=== PATIENT | male | born 1965 | race Caucasian/White ===

== ENCOUNTER 2021-05-05 23:25 | Emergency (ER) | payer SELFPAY ==
[~2021-05-05] VITALS: Ht 172.7 cm; Wt 63.5 kg
[2021-05-05 23:50] LABS: BASOPHILS ABSOLUTE AUTO 0.09 K/mm3 (0.00-0.23); BASOPHILS PERCENT AUTO 1 % (0-2); EOSINOPHILS ABSOLUTE AUTO 0.04 K/mm3 (0.00-0.68); EOSINOPHILS PERCENT AUTO 0 % (0-6); Hematocrit 43.8 % (37.0-53.0); Hemoglobin 15.2 g/dL (13.5-17.5); IMMATURE GRAN ABSOLUTE AUTO 0.04 K/mm3 (0.00-0.10); IMMATURE GRAN PERCENT AUTO 0 % (0-1); LYMPHOCYTES ABSOLUTE AUTO 2.32 K/mm3 (0.84-5.20); LYMPHOCYTES PERCENT AUTO 17 % (21-46); MONOCYTES ABSOLUTE AUTO 0.61 K/mm3 (0.16-1.47); MONOCYTES PERCENT AUTO 5 % (4-13); Mean Corpuscular HGB 31.3 pg (26.0-34.0); Mean Corpuscular HGB Conc 34.7 g/dL (31.5-36.5); Mean Corpuscular Volume 90 fL (80-100); Mean Platelet Volume 9.3 fL (9.1-12.4); NEUTROPHILS ABSOLUTE AUTO 10.26 K/mm3 (1.96-9.15); NEUTROPHILS PERCENT AUTO 77 % (41-73); Platelet Count 262 K/mm3 (150-400); RDW Coefficient Variation 13.4 % (11.7-14.2); RDW Standard Deviation 44.8 fL (35.1-46.3); Red Blood Cell Count 4.85 M/mm3 (4.30-5.90); White Blood Cell Count 13.36 K/mm3 (4.00-11.30)
[2021-05-06 00:08] LABS: Alanine Aminotransfer (ALT/SGP 45 U/L (12-78); Albumin, Blood 4.1 g/dL (3.4-5.0); Alk Phos 117 U/L (50-136); Anion Gap 9 mmol/L (6-16); Aspartate Aminotrans (AST/SGOT 30 U/L (12-37); Bilirubin, Total 0.3 mg/dL (0.1-1.0); Blood Urea Nitrogen 18 mg/dL (8-24); Bun/Creatinine Ratio 21.3 (12.0-20.0); CO2, Blood 22 mmol/L (21-32); Calcium, Blood 9.6 mg/dL (8.5-10.1); Chloride, Blood 108 mmol/L (98-108); Creatinine, Blood 0.85 mg/dL (0.60-1.20); Globulin, Blood 4.3 g/dL (2.2-4.0); Glomerular Filtration Rate >60 (60-); Glucose, Blood 122 mg/dL (70-99); Potassium, Blood 3.5 mmol/L (3.5-5.5); Sodium, Blood 139 mmol/L (136-145); Total Protein, Blood 8.4 g/dL (6.4-8.2)
[2021-05-06] MEDS ORDERED: LEVO750 PO (00:34)
[2021-05-06] MEDS ORDERED: PRED20 PO (00:34)
[2021-05-06 01:09] LABS: Influenza A, PCR NEGATIVE (NEGATIVE); Influenza B, PCR NEGATIVE (NEGATIVE); Resp Syncytial Virus, PCR NEGATIVE (NEGATIVE); SARS-Cov-2 (COVID-19) PCR, MMC NEGATIVE (NEGATIVE)
[2021-05-06 01:20] LABS: Prothrombin Time Results 10.5 Sec (9.7-11.5)
== END 2021-05-06 02:20 | disposition short-term general hospital (02) ==
LOC: ER 23:25
PROVIDERS: Physician Assistant; Student in an Organized Health Care Education/Training Program
DX: I60.9 Nontraumatic subarachnoid hemorrhage, unspecified (principal); J44.1 Chronic obstructive pulmonary disease with (acute) exacerbation; Z20.822 Contact with and (suspected) exposure to COVID-19; F17.200 Nicotine dependence, unspecified, uncomplicated; Z88.5 Allergy status to narcotic agent
CPT/HCPCS: 0241U; 70450; 80053; 85025; 85610; 85730; 96365; 96366; 96368; 96375; 99285-25; J1953; J2405; J7050

== ENCOUNTER 2025-02-22 14:26 | Inpatient (IN) | payer OTHER ==
[~2025-02-22] VITALS: Ht 172.7 cm; Wt 64.9 kg
[~2025-02-22 14:26] MED LIST: LEVO750 PO; LOSA50 PO; PRED20 PO
[2025-02-22 15:19] LABS: BASOPHILS ABSOLUTE AUTO 0.02 K/mm3 (0.00-0.23); BASOPHILS PERCENT AUTO 0 % (0-2); EOSINOPHILS ABSOLUTE AUTO 0.01 K/mm3 (0.00-0.68); EOSINOPHILS PERCENT AUTO 0 % (0-6); Hematocrit 39.9 % (37.0-53.0); Hemoglobin 14.0 g/dL (13.5-17.5); IMMATURE GRAN ABSOLUTE AUTO 0.02 K/mm3 (0.00-0.10); IMMATURE GRAN PERCENT AUTO 0 % (0-1); LYMPHOCYTES ABSOLUTE AUTO 1.15 K/mm3 (0.84-5.20); LYMPHOCYTES PERCENT AUTO 20 % (21-46); MONOCYTES ABSOLUTE AUTO 0.25 K/mm3 (0.16-1.47); MONOCYTES PERCENT AUTO 4 % (4-13); Mean Corpuscular HGB Conc 35.1 g/dL (31.5-36.5); Mean Corpuscular Volume 80 fL (80-100); NEUTROPHILS ABSOLUTE AUTO 4.45 K/mm3 (1.96-9.15); NEUTROPHILS PERCENT AUTO 76 % (41-73); NRBC ABSOLUTE 0.00 K/mm3 (0.00-0.02); NRBC Auto 0.0 /100 WBC (0.0-0.2); Platelet Count 250 K/mm3 (150-400); RDW Coefficient Variation 13.2 % (11.7-14.2); RDW Standard Deviation 37.7 fL (35.1-46.3)
[2025-02-22 15:38] LABS: Alanine Aminotransfer (ALT/SGP 19.0 U/L (12-78); Albumin, Blood 3.2 g/dL (3.4-5.0); Albumin/Globulin Ratio 0.7 (0.8-1.8); Anion Gap 16.0 mmol/L (3-11); Aspartate Aminotrans (AST/SGOT 22.0 U/L (12-37); Bilirubin, Total 0.6 mg/dL (0.1-1.0); Blood Urea Nitrogen 30.0 mg/dL (8-24); CO2, Blood 25.0 mmol/L (21-32); Calcium, Blood 9.4 mg/dL (8.5-10.1); Chloride, Blood 86.0 mmol/L (98-108); Creatinine, Blood 0.9 mg/dL (0.60-1.20); Globulin, Blood 4.9 g/dL (2.2-4.0); Glucose, Blood 115.0 mg/dL (70-99); Potassium, Blood 3.0 mmol/L (3.5-5.5); Sodium, Blood 124.0 mmol/L (136-145); Total Protein, Blood 8.1 g/dL (6.4-8.2)
[2025-02-22] MEDS ORDERED: NS 1,000 ML IV SCH ×2 (16:15→19:00)
[2025-02-22 17:00] LABS: pH Blood Venous 7.44 (7.34-7.37)
[2025-02-22 17:22] LABS: CORONAVIRUS COVID-19 AG Negative (NEGATIVE)
[2025-02-22] MEDS ORDERED: CefTRIAXone Sodium 1,000 MG in NS 100 ML IV ONE (17:45)
[2025-02-22] MEDS ORDERED: Albuterol 2.5 MG/3 ML VIAL INH PRN (18:15)
[2025-02-22] MEDS ORDERED: FLU VACC TS2025-26(6MOS UP)/PF 45 MCG/0.5 ML SYRINGE IM SCH (18:15)
[2025-02-22] MEDS ORDERED: Magnesium Sulf 2 GM/Water 50ML 50 ML IV STA (18:35)
[2025-02-22] MEDS ORDERED: Potassium Chl 20MEQ/Water100ML 100 ML IV STA (18:35)
[2025-02-22 18:40] LABS: Source, Urine Clean Catch
[2025-02-22 19:14] LABS: Bilirubin, Urine Neg (Neg); Color, Urine Yellow (P-Yellow); Glucose Qualitative, Urine Neg (Neg); Ketones, Urine Neg (Neg); Leukocyte Esterase, Urine Neg (Neg); Protein, Urine 1+ (Neg); Specific Gravity, Urine 1.015 (1.003-1.022); Urobilinogen, Urine 1+ (Normal)
[2025-02-22] MEDS ORDERED: NS 1,000 ML IV ONE (19:47)
[2025-02-22 19:49] LABS: Red Blood Cells, Urine 0-2 /hpf (0-2)
[2025-02-22] MEDS ORDERED: Lactobacil 2-S.Thermo-Bifido 1 1 Cap PO SCH (21:00)
[2025-02-22 21:17] VITALS: BP 141/99
[2025-02-22 21:24] LABS: U Amphetamine Screen Not Detected; U Barbiturate Screen Not Detected; U Benzodiazapine Screen Not Detected; U Buprenorphine Screen Not Detected; U Cannabinoids Screen DETECTED; U Cocaine Screen Not Detected; U Methadone Screen Not Detected; U Methamphetamine Screen Not Detected; U Opiates Screen Not Detected; U Oxycodone Screen Not Detected; U Phencyclidine Screen Not Detected
[2025-02-22 22:29] LABS: Anion Gap 13.0 mmol/L (3-11); Blood Urea Nitrogen 25.0 mg/dL (8-24); CO2, Blood 23.0 mmol/L (21-32); Calcium, Blood 8.7 mg/dL (8.5-10.1); Chloride, Blood 93.0 mmol/L (98-108); Creatinine, Blood 0.72 mg/dL (0.60-1.20); Glucose, Blood 100.0 mg/dL (70-99); Potassium, Blood 3.2 mmol/L (3.5-5.5); Sodium, Blood 126.0 mmol/L (136-145)
[2025-02-22] MEDS ORDERED: Ondansetron HCl 2 MG / ML 2ML Vial IV PRN (22:30)
--- NOTE | 2025-02-22 23:05 | NUR ---
ADMIT NOTE FOR 02/22/25 2100 REPORT WAS RECEIVED FROM THE ER. PT WAS BROUGHT DOWN ON THE GURNEY AND TRANSFERRED OVER TO PCU RM 10 BED. PT WAS ORIENTED TO THE ROOM AND STAFF. PT ALERT ORIENTED X 3 UNSURE OF THE MONTH HE STATED THAT ITS MAY. HES ABLE TO VERBALIZE NEEDS. HE WAS PUT ON 4 L OF NC SATTING AT 94%. CALLED MD TO GET ORDERS FOR ZOFRAN, TYLENOL AND NOCOTINE PATCH. FULL BODY ASSESSMENT WAS DONE. HES RESTING IN BED AT THIS TIME
[2025-02-22 23:43] VITALS: BP 131/90
[2025-02-23 03:48] VITALS: BP 125/87
--- NOTE | 2025-02-23 06:01 | NUR ---
SHIFT SUMMARY PT ALERT ORIENTED X 2-3 SAID THAT ITS MAY WHEN ASKED THE MONTH. HE STATED THAT HES HOMELESS AT THIS TIME AND HAS A HX OF SCHIZOPHRENIA AND ANXIETY BUT HASNT TAKEN ANY MEDS IN A YEAR. HE IS ANXIOUS AT THIS TIME PULLED OUT HIS IV, TOOK OFF HIS O2, TOOK OFF HIS PULSE OX AND IS REALLY RESTLESS. I WENT AND EXPLAINED TO HIM THAT HE NEEDS ALL OF THOSE THINGS TO HELP HIM GET BETTER. HE STATED THAT HE WASNT SURE WHAT HE WAS DOING WHEN HE REMOVED EVERYTHING. HE ALSO ASKED ME IF THERE WAS A DOG ON THE CEILING. IT APPEARS HES HAVING SOME HALLUCINATIONS. HE REMAINS ON 4L OF O2 AND HE DESATS TO THE LOW 80S WHEN HE REMOVED HIS O2. WE ALSO PUT A MALE PUREWICK ON HIM AND HE REMOVED IT TOO. HE DID GET UP TO THE BEDSIDE COMMODE AND HAS A XLG LIQUID STOOL. WE SENT IT TO LAB FOR TESTING. WE SET HIM UP WITH A VIRTUAL SITTER TO HELP TO MONITOR HIM. HIS POTASSIUM WAS AT 3.2 AND MD ORDERED 40 IV POTASSIUM WHICH HE GOT MOST OF. HIS TOXIC SCREEN SHOWED POSITIVE FOR MARIJUANA. REMAINS ON NS AT 125. HES RESTING IN BED AT THIS TIME WITH CALL LIGHT IN REACH
[2025-02-23 06:52] LABS: BASOPHILS ABSOLUTE AUTO 0.02 K/mm3 (0.00-0.23); BASOPHILS PERCENT AUTO 1 % (0-2); EOSINOPHILS ABSOLUTE AUTO 0.02 K/mm3 (0.00-0.68); EOSINOPHILS PERCENT AUTO 1 % (0-6); Hematocrit 32.8 % (37.0-53.0); Hemoglobin 11.1 g/dL (13.5-17.5); IMMATURE GRAN ABSOLUTE AUTO 0.02 K/mm3 (0.00-0.10); IMMATURE GRAN PERCENT AUTO 1 % (0-1); LYMPHOCYTES ABSOLUTE AUTO 0.79 K/mm3 (0.84-5.20); LYMPHOCYTES PERCENT AUTO 24 % (21-46); MONOCYTES ABSOLUTE AUTO 0.09 K/mm3 (0.16-1.47); MONOCYTES PERCENT AUTO 3 % (4-13); Mean Corpuscular HGB Conc 33.8 g/dL (31.5-36.5); Mean Corpuscular Volume 82 fL (80-100); NEUTROPHILS ABSOLUTE AUTO 2.33 K/mm3 (1.96-9.15); NEUTROPHILS PERCENT AUTO 71 % (41-73); NRBC ABSOLUTE 0.00 K/mm3 (0.00-0.02); NRBC Auto 0.0 /100 WBC (0.0-0.2); Platelet Count 177 K/mm3 (150-400); RDW Coefficient Variation 13.4 % (11.7-14.2); RDW Standard Deviation 40.4 fL (35.1-46.3)
[2025-02-23 07:21] LABS: Campylobacter Sp Not Detected (NOT DETECT)
[2025-02-23 07:22] LABS: E. Coli O157 Not Detected (NOT DETECT); Enteroaggregative E. coli-EAEC Not Detected (NOT DETECT); Enteropathogenic E. coli-EPEC Not Detected (NOT DETECT); Enterotoxigenic E. coli-ETEC Not Detected (NOT DETECT); Salmonella Sp Not Detected (NOT DETECT); Shiga Toxin-prod E. coli-STEC Not Detected (NOT DETECT); Shigella/Enteroin E. coli-EIEC Not Detected (NOT DETECT); Vibrio Sp Not Detected (NOT DETECT)
[2025-02-23 07:49] VITALS: BP 127/94
[2025-02-23 07:50] LABS: Anion Gap 10.0 mmol/L (3-11); Blood Urea Nitrogen 18.0 mg/dL (8-24); CO2, Blood 24.0 mmol/L (21-32); Calcium, Blood 7.7 mg/dL (8.5-10.1); Chloride, Blood 100.0 mmol/L (98-108); Creatinine, Blood 0.7 mg/dL (0.60-1.20); Glucose, Blood 107.0 mg/dL (70-99); Magnesium, Blood 2.6 mg/dL (1.6-2.4); Potassium, Blood 3.4 mmol/L (3.5-5.5); Sodium, Blood 131.0 mmol/L (136-145)
[2025-02-23] MEDS ORDERED: Enoxaparin 40 MG/0.4 ML SYR SC SCH (09:00)
[2025-02-23 11:53] VITALS: BP 112/92
[2025-02-23 15:28] VITALS: BP 118/93
--- NOTE | 2025-02-23 17:43 | NUR ---
SHIFT SUMMARY; ASSUMED CARE AT 0700, A/A/OX2-3. CONFUSED AT TIMES AND TALKS TO SELF, HX OF SCHIZOPHRENIA. FOLLOWS INSTRUCTIONS BUT FORGETFUL AT TIMES. BED AND CHAIR ALARM USED. AMBULATES TO BSC WITH 1 PERSON ASSIST. LOOSE STOOL X1 DURING SHIFT. 02 4-7L. DESATS QUICKLY WITH EXERTION TO 82% AT TIMES. RECOVERS WITH 7L TO MID 90'S. BP STABLE. NS INFUSING AT 125ML/HR. WILL CONTINUE TO MONITOR AND TREAT UNTIL REPORT GIVEN TO NOC SHIFT RN.
[2025-02-23] MEDS ORDERED: CefTRIAXone Sodium 1,000 MG in NS 100 ML IV SCH (18:00)
[2025-02-23 19:52] VITALS: BP 126/102
[2025-02-23] MEDS ORDERED: DiphenhydrAMINE HCl 50 MG/ML 1ML Vial IV PRN (21:00)
[2025-02-23 23:39] VITALS: BP 127/99
[2025-02-24] VITALS (24 sets, daily range): BP systolic 80–118; BP diastolic 62–96
[2025-02-24 05:10] LABS: BASOPHILS ABSOLUTE AUTO 0.01 K/mm3 (0.00-0.23); BASOPHILS PERCENT AUTO 0 % (0-2); EOSINOPHILS ABSOLUTE AUTO 0.00 K/mm3 (0.00-0.68); EOSINOPHILS PERCENT AUTO 0 % (0-6); Hematocrit 32.5 % (37.0-53.0); Hemoglobin 11.1 g/dL (13.5-17.5); IMMATURE GRAN ABSOLUTE AUTO 0.03 K/mm3 (0.00-0.10); IMMATURE GRAN PERCENT AUTO 0 % (0-1); LYMPHOCYTES ABSOLUTE AUTO 0.45 K/mm3 (0.84-5.20); LYMPHOCYTES PERCENT AUTO 7 % (21-46); MONOCYTES ABSOLUTE AUTO 0.11 K/mm3 (0.16-1.47); MONOCYTES PERCENT AUTO 2 % (4-13); Mean Corpuscular HGB Conc 34.2 g/dL (31.5-36.5); Mean Corpuscular Volume 84 fL (80-100); NEUTROPHILS ABSOLUTE AUTO 6.21 K/mm3 (1.96-9.15); NEUTROPHILS PERCENT AUTO 91 % (41-73); NRBC ABSOLUTE 0.00 K/mm3 (0.00-0.02); NRBC Auto 0.0 /100 WBC (0.0-0.2); Platelet Count 196 K/mm3 (150-400); RDW Coefficient Variation 13.9 % (11.7-14.2); RDW Standard Deviation 42.3 fL (35.1-46.3)
[2025-02-24 05:24] LABS: Anion Gap 14.0 mmol/L (3-11); Blood Urea Nitrogen 9.0 mg/dL (8-24); CO2, Blood 19.0 mmol/L (21-32); Calcium, Blood 8.1 mg/dL (8.5-10.1); Chloride, Blood 103.0 mmol/L (98-108); Creatinine, Blood 0.58 mg/dL (0.60-1.20); Glucose, Blood 127.0 mg/dL (70-99); Potassium, Blood 4.0 mmol/L (3.5-5.5); Sodium, Blood 132.0 mmol/L (136-145)
--- NOTE | 2025-02-24 06:19 | NUR ---
SHIFT SUMMARY PT ALERT ORIENTED TO SELF ONLY AND VERY PARANOID. HE HAS A HX OF PARANOID SCHIZOPHRENIA AND HAS BEEN HAVING VISUAL AND AUDITORY HALLUCINATIONS. HES BEEN VERY RESTLESS ALL SHIFT TRYING TO TAKE OUT HIS POWERGLIDE AND CONTINUING TO REMOVE HIS OXYGEN SEVERAL TIMES. HE GETS VERY SOB WITH ANY TYPE OF EXERTION AND DESATS TO THE LOW 80S. HES BEEN REQUIRING 5-8L OF OXYGEN VIA MASK. HE C/O NAUSEA MEDICATED WITH ZOFRAN WITH GOOD RELIEF. ALSO C/O GENERAL PAIN MEDICATED WITHTYLENOL WITH GOOD RELIEF. REMAINS ON ROCEPHIN ORDERED FOR PNEUMONIA. POWERGLIDE INTACT TO LT UPPER ARM WITH NS AT 125. DRESSING INTACT TO HIS OPEN AREA ON COCCYX. HE HAS A SITTER AT BEDSIDE. HE WAS GIVEN BENEDRYL FOR ITCHING WITH NO HELP. HE REMAINED AWAKE MOST OF THE SHIFT. HE NEEDS TO GET HIS PSYCH MEDS RESTARTED.
[2025-02-24] MEDS ORDERED: LORazepam 2 MG/ML 1ML Injection IV PRN (10:15)
[2025-02-24 10:45] LABS: pH Blood Venous 7.49 (7.34-7.37)
[2025-02-24 10:47] LABS: Acinetobacter baumannii DNA Not Detected copy/mL (NOT DETECT); Chlamydia pneumonia Not Detected (NOT DETECT); Enterobacter cloacae DNA Not Detected copy/mL (NOT DETECT); Escherichia coli DNA Not Detected copy/mL (NOT DETECT); Haemophilus influenzae DNA Detected Bin 10^6 copy/mL (NOT DETECT); Human Coronavirus RNA Not Detected (NOT DETECT); Klebsiella aerogenes DNA Not Detected copy/mL (NOT DETECT); Klebsiella oxytoca DNA Not Detected copy/mL (NOT DETECT); Klebsiella pneumoniae DNA Not Detected copy/mL (NOT DETECT); Moraxella catarrhalis DNA Not Detected copy/mL (NOT DETECT); Proteus sp DNA Not Detected copy/mL (NOT DETECT); Pseudomonas aeruginosa DNA Not Detected copy/mL (NOT DETECT); Serratia marcescens DNA Not Detected copy/mL (NOT DETECT); Staphylococcus aureus DNA Not Detected copy/mL (NOT DETECT); Streptococcus agalactiae DNA Not Detected copy/mL (NOT DETECT); Streptococcus pneumoniae DNA Not Detected copy/mL (NOT DETECT); Streptococcus pyogenes DNA Not Detected copy/mL (NOT DETECT)
[2025-02-24 10:48] LABS: Human Metapneumovirus RNA Not Detected (NOT DETECT); Influenza virus A RNA Not Detected (NOT DETECT); Influenza virus B RNA Not Detected (NOT DETECT); Respiratory syncytial Vir RNA Not Detected (NOT DETECT); Rhinovirus+Enterovirus RNA Not Detected (NOT DETECT)
--- NOTE | 2025-02-24 10:50 | NUR ---
given 0.5 mg Ativan IV to help tolerance of bipap mask.
--- NOTE | 2025-02-24 11:40 | NUR ---
TRANSFER TO ICU PT ARRIVED TO ICU 10 VIA BED AT 1125. PT TRANSFERED TO ICU BED. PT IS AWAKE AND ALERT. PT ARRIVED WITH 15L O2 VIA NC, AND 15L O2 VIA NONREBREATHER. VITAL SIGNS STABLE AT THIS TIME. RT SETTING UP AIRVO AT THIS TIME. PT RESTLESS AND PULLING AT LINES/TUBES. PRECEDEX STARTED AT 0.2 MCG/KG/HR. WILL CONTINUE TO MONITOR.
--- NOTE | 2025-02-24 11:46 | NUR ---
TRANSFER TO ICU NOTE; PT WAS ON 4L OXYMIZER AT THE BEGINNING OF THE SHIFT, PT RECEIVED A BED BATH AND USED THE BEDSIDE COMMODE, SITTER IN THE ROOM CALLED PT WAS DESATTING TO THE LOW 70'S, PT TOOK SOME TIME TO RECOVER UNTIL PT WAS AT 12L NC HIFLO AND MAX 15L OXYMASK ON TOP. PT WAS TACHYPNEIC RR AT 30'S. CHEST XR WAS DONE PT HAS INTERSTITIAL LUNG DSE AND BILATERAL PNA. PT'S BNP WAS AT 1361. IV LASIX 40MG WAS GIVEN. PT PUT OUT 1L OF CELAR YELLOW URINE AFTER AN HR. PT WAS PLACED ON BIPAP FOR ALMOST AN HR, PT STARTED GETTING ANXIOUS COMPLAINING CLARENCE BREATHING IS MUCH WORSE ON THE BIPAP WANTING TO TAKE IT OUT. ALSO HAS SOME HALLUCINATIONA DN PICKING ON LINES AND TUBINGS. PT WAS GIVEN .5MG IV ATIVAN. PT WAS MORE ANXIOUS. PT TAKING OFF BIPAP SWITCHED BACK TO HIFLO NC AND OXYMIZER PT SATS REMAINS LOW AT 85%. CALLED DR POTTS. ORDER TO TRANSFER PT TO ICU ON PRECEDEX GTT AND BIPAP. REPORT GIVEN TO CEZAR KAUR AT BEDSIDE. ALL BELONGINGS SENT WITH THE PT
[2025-02-24] MEDS ORDERED: Piperacillin/Tazobactam Sod 4.5 GM in NS 100 ML IV SCH (13:00)
[2025-02-24] MEDS ORDERED: HYDROCORTISONE SOD SUCCINATE IV SCH (13:30)
[2025-02-24] MEDS ORDERED: NS IV SCH (13:30)
[2025-02-24] MEDS ORDERED: Enoxaparin 80 MG/0.8 ML SYR SC SCH (17:00)
--- NOTE | 2025-02-24 17:38 | NUR ---
SHIFT SUMMARY PT ARRIVAL TO UNIT APPROX 1145. ARRIVED ON NC OVERLAYED WITH NRB ON 15L, SATS TO MID 80S. RT TO BEDSIDE AND WAS SWITCHED TO AIRVO 60L 100% FI02, SATS IMPROVED TO MID 90S. PRECEDEX STARTED AT 0.2 MCG, CURRENTLY RUNNING AT 0.6 MCG VIA POWERGLIDE IN [facility]. PT SATS HAVE BEEN LABILE T/O SHIFT RANGING FROM LOW 80S TO MID 90S AND EXHIBITING VICKIE-ANTONIO. PT SATS WERE SUSTAINING IN THE LOW 80S AND PT BECOMING RESTLESS APPROX 1745, RT TO BEDSIDE AND INTIATED BIPAP 03/31 100% FI02. PT HAS BEEN IN SINUS RYHTHM IN THE 70S-80S T/O SHIFT, BP STABLE WITH MAP >65, SYSTOLIC PRESSURES IN THE 120S TRENDING DOWN TOWARD THE 90S WHILE ON PRECEDEX. PT ORIENTATION IS LABILE, ON ARRIVAL WAS A/O X3 AND ABLE TO ANSWER QUESTIONS BUT WOULD TRAIL OFF AND BEGIN MUMBLING RANDOM WORDS AND PHRASES AT INTERVALS, HAS PERIODS WHERE HE IS ONLY ORIENTED TO SELF AND LATER IS A/O X3 AGAIN BUT CONSISTENTLY LOSES TRACK OF CONVERSATION IF NOT BEING PROMPTED TO FOCUS. CURRENTLY ORIENTED ONLY TO SELF. PT MADE NPO, UNABLE TO SAFELY SWALLOW IN BEDSIDE EVAL AND RAPIDLY DESATS. ABLE TO USE URINAL WITH 1 ASSIST, CALL LIGHT WITHIN REACH, GENERAL INTERNAL MEDICINE PHYSICIAN AT BEDSIDE D/T PT PULLING AT LINES AND AIRVO/BIPAP.
[2025-02-25] VITALS (47 sets, daily range): BP systolic 96–137; BP diastolic 69–106
[2025-02-25 05:20] LABS: BASOPHILS ABSOLUTE AUTO 0.00 K/mm3 (0.00-0.23); BASOPHILS PERCENT AUTO 0 % (0-2); EOSINOPHILS ABSOLUTE AUTO 0.00 K/mm3 (0.00-0.68); EOSINOPHILS PERCENT AUTO 0 % (0-6); Hematocrit 34.7 % (37.0-53.0); Hemoglobin 12.0 g/dL (13.5-17.5); IMMATURE GRAN ABSOLUTE AUTO 0.03 K/mm3 (0.00-0.10); IMMATURE GRAN PERCENT AUTO 1 % (0-1); LYMPHOCYTES ABSOLUTE AUTO 0.87 K/mm3 (0.84-5.20); LYMPHOCYTES PERCENT AUTO 14 % (21-46); MONOCYTES ABSOLUTE AUTO 0.10 K/mm3 (0.16-1.47); MONOCYTES PERCENT AUTO 2 % (4-13); Mean Corpuscular HGB Conc 34.6 g/dL (31.5-36.5); Mean Corpuscular Volume 81 fL (80-100); NEUTROPHILS ABSOLUTE AUTO 5.04 K/mm3 (1.96-9.15); NEUTROPHILS PERCENT AUTO 83 % (41-73); NRBC ABSOLUTE 0.00 K/mm3 (0.00-0.02); NRBC Auto 0.0 /100 WBC (0.0-0.2); Platelet Count 213 K/mm3 (150-400); RDW Coefficient Variation 13.8 % (11.7-14.2); RDW Standard Deviation 40.7 fL (35.1-46.3)
[2025-02-25 06:21] LABS: Anion Gap 12.0 mmol/L (3-11); Blood Urea Nitrogen 19.0 mg/dL (8-24); CO2, Blood 25.0 mmol/L (21-32); Calcium, Blood 8.3 mg/dL (8.5-10.1); Chloride, Blood 98.0 mmol/L (98-108); Creatinine, Blood 0.78 mg/dL (0.60-1.20); Glucose, Blood 147.0 mg/dL (70-99); Potassium, Blood 3.2 mmol/L (3.5-5.5); Sodium, Blood 132.0 mmol/L (136-145)
--- NOTE | 2025-02-25 06:46 | NUR ---
SHIFT SUMMARY PT INTERMITTENTLY ALERT/ORIENTED X1, ON BIPAP, ATTEMPTS TO TAKE MASK OFF WHEN ATTEMPTS AT REDUCING PRECEDEX GTT, CURRENTLY AT 0.6. DESATS EASILY WITH ANY EXERTION, INCLUDING TURNS. DR DELEON UPDATED WITH LABS THIS AM. ORDER RECEIVED FOR KCL REPLACEMENT. WILL UPDATE DAY RN WITH ALL OUTSTANDING ISSUES AND PROBLEMS TO DATE. VSS AT THIS TIME.
[2025-02-25 11:23] LABS: Anti-Xa UFH, PHA Monitoring 0.32 IU/mL; Prothrombin Time Results 13.7 Sec (9.7-11.5)
[2025-02-25] MEDS ORDERED: Dose Adjust by Pharmacy XX STA (11:33)
[2025-02-25] MEDS ORDERED: Heparin Sodium,Porcine/0.5 NS 500 ML IV SCH (11:35)
[2025-02-25] MEDS ORDERED: Docusate Sodium Liquid 100 MG UDC PT PRN (11:55)
--- NOTE | 2025-02-25 14:20 | NUR ---
O2 SAT STAYING AT 82%. RT. FIO2 INCREASED TO 80%. O2 SAT AT 92%.
--- NOTE | 2025-02-25 14:23 | NUR ---
MESSAGE TO FAMILY MESSAGE LEFT ON SISTER YULIANA VOICEMIAL STATING THAT THE PATIENT IS HERE, IT'S NOT AN EMERGENCY, BUT HE WOULD LIKE TO SPEAK WITH HER.
--- NOTE | 2025-02-25 14:54 | NUR ---
SISTER YULIANA UPDATED ON PT'S CONDITION. SISTER REQUEST CASE MANAGEMENT CALL HER BEFORE DISCHARGE D/T PT'S UNSAFE LIVING CONDITION.
--- NOTE | 2025-02-25 15:42 | NUR ---
PT PULLED OUT DOBBHOFF. PT CLM BUT SAID IT HURT HIS THROAT. DR. BADILLO NOTIFED. ORDERED DOBBHOFF OUT UNTIL TOMORROW.
--- NOTE | 2025-02-25 17:39 | NUR ---
END OF SHIFT. PT ALERT TO NAME,, AND IN HOSPITAL. BECOMES AGITATED WHEN PREXEDEX TITRATED DOWN BUT ALERT AND TALKING AT .5. PT HAD BEEN ON FHF AT 60 LITERS AND 80% BUT BECAME SOB AT 1730 WHEN IT GOT DARK AND DESATURATED TO 80%. BIPAP REAPPLIED AT 6/6 AT 70%. O2 SAT 92%. PT HAD A DOBBHOFF PLACED EARLIER BUT PT PULLED IT OUT AND DR. BADILLO SAID HE WILL REASESS TOMORROW. PICC PLACED IN ARIANNE. POWERGLIDE IN ROMEL.PURWICK REPLACED AND DRAINING YELLOW URINE. PT REPOSITIONED Q 2 AND SLIGHTLY RED COCCYX MONITORED.CHLORAHEXIDINE BATH GIVEN.SISTER UPDATED.
--- NOTE | 2025-02-25 19:00 | NUR ---
ASSUMPTION OF CARE CARE OF PT ASSUMED FOLLOWING BEDSIDE SHIFT REPORT FROM DAY RN. PT LOOKS SICK AND IN MOD DISTRESS, WEARING CPAP AT 6. PT ALERT AND ORIENTED TO SELF, BUT OTHERWISE CONFUSED. PT SWITCHED TO AIRVO FOR ASSESSMENT TO SPEAK WITH PT BUT PT DESATURATED AFTER 30 MIN AND SWITCHED BACK TO CPAP WHICH WAS CHANGED TO BIPAP SETTINGS WHEN PT CALMED DOWN FOLLOWING ADMIN OF PRN ATIVAN. PT ON 0.5 OF PRECEDEX AND RASS OF +2, WILL TITRATE UP. REPORTEDLY, PT QTC BEING PROLONGED BY PRECEDEX, A RARE SIDE EFFECT- WILL MONITOR BUT MAY NEED TO INCREASE IN SPITE OF THIS IN ORDER TO KEEP PT FROM GETTING INTUBATED. LUNGS DIMINISHED WITH CRACKLES IN BASES. PT EXHIBITS CHEYENES-ANTONIO TYPE BREATHING PATTERN, PARTICULARY WHEN AGITATED. PRN ATIVAN SCHEDULED CHANGED FROM Q 4 TO Q 2 FOLLOWING CONVERSATION WITH INSPECTOR FILTERS. SOLUMEDROL INFUSING AT 10ML/HR. HEPARIN INFUSING AT 15 UNITS/KG/HR. PT WEAK. AFEBRILE. COOPERATIVE AT TIMES BUT PULLING AT CORDS AND LINES, WELL MASK, THE REST OF THE TIME. PT IN SINUS RHYTHM WITH STRANGE T WAVES. RATE 60-110 DEPENDING ON AGITATION LEVEL. BP STABLE. PT DENIES CHEST PAIN. IS SHORT OF BREATH. PT ADMITS TO AB PAIN BUT WILL NOT BE MORE SPECIFIC- WILL MONITOR. PUREWICK IN PLACE TO SUCTION DRAINING YELLOW URINE. WILL REVIEW AND CONTINUE PLAN OF CARE. CARDIO WAS CONSULTED TODAY- ADVISED HEPARIN, ASPIRIN, PLAVIX, CAUTIOUS LASIX AND LOW DOSE SPIRONOLACTONE. BELIEVES ECG CHANGES AND ECHO RESULTS SUGGEST NSTEMI DUE TO DEMAND ISCHEMIA FROM PNEUMONIA.
[2025-02-25] MEDS ORDERED: Heparin Sodium 5000 Units/ML 1ML MDV IV ONE (20:25)
[2025-02-25] MEDS ORDERED: LORazepam 2 MG/ML 1ML Injection IV PRN (20:35)
[2025-02-26] VITALS (31 sets, daily range): BP systolic 64–150; BP diastolic 41–120
--- NOTE | 2025-02-26 | NUR ---
UPDATE: DESPITE INCREASING PRECEDEX AND PRN ATIVAN, PT CONTINUES TO PULL OFF BIPAP MASK AND PULL AT IV'S AND MONITOR LEADS. CHARGE NURSE INFORMED AND SITTER CALLED IN
[2025-02-26 03:14] LABS: BASOPHILS ABSOLUTE AUTO 0.00 K/mm3 (0.00-0.23); BASOPHILS PERCENT AUTO 0 % (0-2); EOSINOPHILS ABSOLUTE AUTO 0.00 K/mm3 (0.00-0.68); EOSINOPHILS PERCENT AUTO 0 % (0-6); Hematocrit 33.8 % (37.0-53.0); Hemoglobin 11.9 g/dL (13.5-17.5); IMMATURE GRAN ABSOLUTE AUTO 0.05 K/mm3 (0.00-0.10); IMMATURE GRAN PERCENT AUTO 1 % (0-1); LYMPHOCYTES ABSOLUTE AUTO 0.83 K/mm3 (0.84-5.20); LYMPHOCYTES PERCENT AUTO 11 % (21-46); MONOCYTES ABSOLUTE AUTO 0.14 K/mm3 (0.16-1.47); MONOCYTES PERCENT AUTO 2 % (4-13); Mean Corpuscular HGB Conc 35.2 g/dL (31.5-36.5); Mean Corpuscular Volume 81 fL (80-100); NEUTROPHILS ABSOLUTE AUTO 6.54 K/mm3 (1.96-9.15); NEUTROPHILS PERCENT AUTO 86 % (41-73); NRBC ABSOLUTE 0.00 K/mm3 (0.00-0.02); NRBC Auto 0.0 /100 WBC (0.0-0.2); Platelet Count 230 K/mm3 (150-400); RDW Coefficient Variation 13.8 % (11.7-14.2); RDW Standard Deviation 40.6 fL (35.1-46.3)
[2025-02-26 03:36] LABS: Alanine Aminotransfer (ALT/SGP 18.0 U/L (12-78); Albumin, Blood 2.5 g/dL (3.4-5.0); Albumin/Globulin Ratio 0.6 (0.8-1.8); Anion Gap 17.0 mmol/L (3-11); Aspartate Aminotrans (AST/SGOT 24.0 U/L (12-37); Bilirubin, Direct 0.1 mg/dL (0.0-0.3); Bilirubin, Indirect 0.4 mg/dL (0.1-0.7); Bilirubin, Total 0.5 mg/dL (0.1-1.0); Blood Urea Nitrogen 23.0 mg/dL (8-24); CO2, Blood 22.0 mmol/L (21-32); Calcium, Blood 7.9 mg/dL (8.5-10.1); Chloride, Blood 101.0 mmol/L (98-108); Creatinine, Blood 0.77 mg/dL (0.60-1.20); Globulin, Blood 3.9 g/dL (2.2-4.0); Glucose, Blood 168.0 mg/dL (70-99); Magnesium, Blood 1.9 mg/dL (1.6-2.4); Phosphorus, Blood 4.1 mg/dL (2.5-4.9); Potassium, Blood 2.8 mmol/L (3.5-5.5); Sodium, Blood 137.0 mmol/L (136-145); Total Protein, Blood 6.4 g/dL (6.4-8.2)
[2025-02-26] MEDS ORDERED: Potassium Chloride 60 MEQ IV SCH (03:50)
[2025-02-26] MEDS ORDERED: Potassium Chl 20MEQ/Water100ML 100 ML IV SCH (04:30)
--- NOTE | 2025-02-26 09:15 | NUR ---
VERBAL ORDER RECIEVED FROM DR MENDOZA AT BEDSIDE FOR METOPROLOL 12.5MG BID. ORDER ENTERED INTO [employer].
[2025-02-26] MEDS ORDERED: Dose Adjust by Pharmacy XX STA (10:33)
--- NOTE | 2025-02-26 13:13 | NUR ---
RESPIRATORY DEMAND PT TOLERATING HHF. 60 LITERS 50% FIO1. PT O2 SATURATION IS 86-87%. FIO2 INCREASED TO 60%. PT CALMER WITH PREXIDEX AT .8. SITER AT BEDSIDE DUE TO PT CONTINUES TO PULL AT DOBBHOFF,, PICC LINE, AND PURWICK SYSEM. CHLORAHEXIDENE BATH GIVEN DUE TO PT PULLED OF [employer] SYSTEM. PT ORIENTED TO NAME BUT DISORIENTED TO PLACE AND HOSPITAL STAY. fAMILY MEMBER Nita UPDATED AND TALKED WITH CASE MANAGEMENT. ORAL CARE DONE FREQUENTLY AND DRY MOUTH APPLIED DUE TO DRY CRACHED TOUNG AND MULTIPLE BROKEN TEETH AND ABCESS IN MOUTH.
--- NOTE | 2025-02-26 14:31 | NUR ---
PT DESAT ON HIGH FLOW NC 60L AT 60%, O2 SATS 76%. COUGH TO CLEAR SECRETIONS INCREASED FIO2 TO 90% NO CHANGE IN SPO2. INCREASED PRECEDEX TO 1MCG/MIN AND PLACED PT ON BIPAP. O2 SAT IMPROVED TO 86% BUT PT NOT TOLERATING. 1MG OF LORAZEPAM GIVEN IV. DR BADILLO CALLED TO BEDSIDE. DECISION WAS MADE TO INTUBATE PT GIVEN DECLINING RESPIRATORY STATUS BY DR BADILLO. 1436 100MG PHENYLEPHRINE ADMINISTERED 1437 FENTANYL 50MCG PT REPOSITIONED IN BED, O2 SATS 96% ON BIPAP FIO2 100%. 1440 50 PROPOFOL 1440 ROCURONIUM - 50MG PT INTUBATED BY MARISOL PRINCE AT 1445 7.5 ETT TUBE 23CM AT THE LIP PT DESAT 79% WITH ON GOING BAGGING, PT POSITION ADJUSTED AND O2 VENT ACVC 15/550/8/100. O2 SAT GOAL OF 90% 1447 100 PHENYLEPHRINE DUE TO HYPOTENSION SBP 70-80S PEEP INCREASED TO 10. O2 SAT 87-88%. DR BADILLO REMAINS AT BEDSIDE VERBAL ORDER RECIEVED FOR FENTANYL 50MCG Q 1HR PRN, DC PRECEDEX, PROPOFOL TITRATE CONT
[2025-02-26] MEDS ORDERED: FentaNYL Citrate 50 MCG/ML 2 ML Injection ONE ×2 (14:36→16:31)
[2025-02-26] MEDS ORDERED: FentaNYL Citrate 50 MCG/ML 2 ML Injection IV PRN (15:00)
[2025-02-26] MEDS ORDERED: FentaNYL Citrate 50 MCG/ML 2 ML Injection IV ONE ×2 (15:00→16:30)
[2025-02-26] MEDS ORDERED: Cisatracurium Besylate 100 MG in NS 50 ML IV SCH (15:55)
[2025-02-26] MEDS ORDERED: Phenylephrine HCl 100 MCG/ML-NS 10MLSYR (1MG/10ML) IV ONE (16:13)
[2025-02-26] MEDS ORDERED: Rocuronium Bromide 10 MG/ML 5ML Injection IV ONE (16:13)
[2025-02-26] MEDS ORDERED: Propofol 10mg/ml 20 ml Vial (Procedural) IV ONE (16:13)
[2025-02-26] MEDS ORDERED: LORazepam 2 MG/ML 1ML Injection ONE (16:31)
[2025-02-26] MEDS ORDERED: LORazepam 2 MG/ML 1ML Injection IV PRN (16:40)
[2025-02-26] MEDS ORDERED: Vasopressin 20 UNITS in NS 100 ML IV SCH (18:00)
--- NOTE | 2025-02-26 18:32 | NUR ---
PT HAD BEEN INTUBED FOR DESATURATION INTO 80% ON 100% BIPAP. iNTUBATED WITH 7.5 AT LL 23. PROPOFOL STARTED AND TITRATED FROM 10 TO 50 MG. FENTANY IVP GIVEN X 2 AND ATIVAN 2MG GIVEN. FENTANYL DRIP TITIRATED FROM 12.5 TO 100MCG. LEVOFED STARTED AND TITRATED FROM 5 TO 20 MICS. PT PARALYZED AND NIMBEX STARTD AT 1.VASOPRESIN STARTED AT .04. TRAIN AT 4/4 AND AFTER PARALYZED DOWN TO 2/4. HEPARIN REMAINED AT 18U. LUNG FIELS REMAIN TIGHT AND DIMINISHED. HR 90-140. METROPOLOL HAD BEEN GIVEN DOEN DOBBHOFF THAT WAS PLACED EARLIER AND CLEARED BY EXOLIVERIO. DR. BADILLO AT BEDSIDE MULTIPLE AND EVALUATED PT. BEDSIDE US DONE OF HEART. SISTER KRISTI NOTIFED OF CHANGE OF CONDITION AND IS DRIVING FROM[employer]Space. DR. BADILLO SPOKE WITH HER 2X ABOUT DETERIORATING CONDITION AND MADE HIM A DNR.VENT SETTINGS CHANGED AND PEEP INCREASED TO 14 BUT DIDNOT IMPROVE O2 SAT OF 60%.PT WITH DR. BADILLO PRESENT AT 1833.
[2025-02-26 21:57] LABS: RHEUMATOID FACTOR <10 IU/mL (0-14)
[2025-02-27 00:13] LABS: ALDOLASE 7.7 U/L (1.2-7.6)
[2025-02-27 10:28] LABS: SMITH (ENA) ANTIBODY, IGG 1 AU/mL (0-40); SSA-52 (RO52) (ENA) AB, IGG 20 AU/mL (0-40); SSA-60 (RO60) (ENA) AB, IGG 0 AU/mL (0-40); SSB (LA) (ENA) ANTIBODY, IGG 11 AU/mL (0-40)
[2025-02-27 12:03] LABS: CYCLIC CITRULLINATED PEP,IGG/A 2 Units (0-19)
[2025-02-27 14:47] LABS: SMITH/RNP (ENA) AB, IGG 2 Units (0-19)
[2025-02-27 20:53] LABS: DOUBLE-STRANDED DNA IGG ELISA 7 IU (0-24)
[2025-02-28 11:18] LABS: ANTINUCLEAR AB (ANA),HEP-2,IGG <1:80 (<1:80)
[2025-02-28 19:41] LABS: MYELOPEROXIDASE (MPO) AB,IGG 0 AU/mL (0-19); SERINE PROTEINASE 3 PR3 AB,IGG 1 AU/mL (0-19)
[2025-03-03 21:51] LABS: JO-1 HISTIDYL-TRNA SYNTHET,IGG 11 AU/mL (0-40); KU ANTIBODY Negative (Negative); SMITH/RNP (ENA) AB, IGG 1 Units (0-19); SSA-52 (RO52) (ENA) AB, IGG 2 AU/mL (0-40); SSA-60 (RO60) (ENA) AB, IGG 1 AU/mL (0-40)
== END 2025-02-26 18:33 | DRG 208 ==
LOC: ER 14:26 → PCU 18:11 → ICUE 18:11 → PCU 20:58 → ICUE 02-24 11:29
PROVIDERS: Internal Medicine Critical Care Medicine; Nurse Practitioner Acute Care; Physician Assistant; Student in an Organized Health Care Education/Training Program; ADMIT Internal Medicine
PROC: 3E03329 Introduction of Other Anti-infective into Peripheral Vein, Percutaneous Approach (ICD-10-PCS; 2025-02-22)
PROC: B24BYZZ Ultrasonography of Heart with Aorta using Other Contrast (ICD-10-PCS; 2025-02-24)
PROC: 5A09457 Assistance with Respiratory Ventilation, 24-96 Consecutive Hours, Continuous Positive Airway Pressure (ICD-10-PCS; 2025-02-24)
PROC: 02HV33Z Insertion of Infusion Device into Superior Vena Cava, Percutaneous Approach (ICD-10-PCS; 2025-02-25)
PROC: 5A1935Z Respiratory Ventilation, Less than 24 Consecutive Hours (ICD-10-PCS; principal; 2025-02-26)
PROC: 0BH17EZ Insertion of Endotracheal Airway into Trachea, Via Natural or Artificial Opening (ICD-10-PCS; 2025-02-26)
PROC: 5A0935A Assistance with Respiratory Ventilation, Less than 24 Consecutive Hours, High Flow/Velocity Cannula (ICD-10-PCS; 2025-02-26)
PROC: 3E033XZ Introduction of Vasopressor into Peripheral Vein, Percutaneous Approach (ICD-10-PCS; 2025-02-26)
PROC: 0DH67UZ Insertion of Feeding Device into Stomach, Via Natural or Artificial Opening (ICD-10-PCS; 2025-02-26)
PROC: 3E0G76Z Introduction of Nutritional Substance into Upper GI, Via Natural or Artificial Opening (ICD-10-PCS; 2025-02-26)
PROC: 0T9B70Z Drainage of Bladder with Drainage Device, Via Natural or Artificial Opening (ICD-10-PCS; 2025-02-26)
DX: J18.9 Pneumonia, unspecified organism (principal); I21.4 Non-ST elevation (NSTEMI) myocardial infarction; I50.23 Acute on chronic systolic (congestive) heart failure; J96.01 Acute respiratory failure with hypoxia; J84.9 Interstitial pulmonary disease, unspecified; E87.1 Hypo-osmolality and hyponatremia; E87.21 Acute metabolic acidosis; I42.9 Cardiomyopathy, unspecified; Z66 Do not resuscitate; F20.9 Schizophrenia, unspecified; F41.9 Anxiety disorder, unspecified; F32.A Depression, unspecified; I11.0 Hypertensive heart disease with heart failure; F17.210 Nicotine dependence, cigarettes, uncomplicated; E86.1 Hypovolemia; E87.6 Hypokalemia; R79.1 Abnormal coagulation profile
CPT/HCPCS: 0528U; 31500; 36415; 36569; 70450; 71045; 71046; 71260; 80048; 80053; 80076; 81001; 82085; 82550; 82803; 83516; 83516-59; 83605; 83690; 83735; 83880; 84100; 84132; 84145; 84182; 84182-59; 84484; 85025; 85379; 85520; 85610; 85730; 86039; 86200; 86225; 86235; 86235-59; 86431; 86762; 87086; 87428-QW; 87449; 87507; 93005; 93010; 94002; 94640; 94660; 94664; 94762; 96361; 96374; 97161; 97530; 99285-25; A9270; C8929; J0456; J0696; J1200; J1644; J1650; J1720; J1938; J2060; J2371; J2405; J2543; J2704; J2919; J3010; J3475; J3480; J7030; J7050; Q9957; Q9967